=== PATIENT | male | born 1935 | race Caucasian/White ===

== ENCOUNTER 2017-11-05 08:43 | Emergency (ER) | payer MEDICARE, BC ==
--- NOTE | 2017-11-05 17:24 | RAD ---
CHEST TWO VIEWS 11/05/17 Comparison is made with the 12/04/09 study from [facility]. The heart is enlarged in the interval. There are no congestive changes, pleural effusions or focal pu lmonary infiltrates. No opaque foreign bodies were evident. Substantial degenerative changes are seen in the thoracic spine. IMPRESSION: 1. Mild to moderate cardiomegaly. 2. No opaque foreign body seen. POS: HOME
--- NOTE | 2017-11-05 17:27 | RAD ---
ABDOMEN 11/05/17 Two supine views of the abdomen were obtained. There is a metallic foreign body in the right lower qu adrant. I do not have any old film to compare with to tell if this is new or old. From the film itsel f, one cannot tell if in bowel or outside. There are some calcifications over the right kidney that a re likely renal calculi. Pelvic calcifications are probably phleboliths. The abdominal gas pattern is normal with a substantial amount of fecal material in the right colon. There is mild gaseous distent ion of the stomach. Degenerative changes are prominent in the spine. IMPRESSION: Metallic foreign body in the right lower quadrant, age indeterminate. I cannot tell if this connected with the recent aspiration or not. Consider the time course between the event and the location of th is finding. POS: HOME
== END 2017-11-05 09:45 | disposition home or self-care (01) ==
LOC: BURERS 08:43
DX: T17.990A Other foreign object in respiratory tract, part unspecified in causing asphyxiation, initial encounter (principal); N40.0 Benign prostatic hyperplasia without lower urinary tract symptoms; E78.5 Hyperlipidemia, unspecified; I10 Essential (primary) hypertension
CPT/HCPCS: 71046; 74018

== ENCOUNTER 2020-09-06 13:58 | Emergency (ER) | payer MEDICARE, BC | END 2020-09-06 14:25 | disposition home or self-care (01) | LOC: BURERS 13:58 | DX: H91.92 Unspecified hearing loss, left ear (principal); I25.10 Atherosclerotic heart disease of native coronary artery without angina pectoris; J44.9 Chronic obstructive pulmonary disease, unspecified; I48.91 Unspecified atrial fibrillation; E11.9 Type 2 diabetes mellitus without complications; I10 Essential (primary) hypertension; E78.5 Hyperlipidemia, unspecified; F17.210 Nicotine dependence, cigarettes, uncomplicated | CPT/HCPCS: 99283 ==